=== PATIENT | male | born 1970 ===

== ENCOUNTER 2021-05-22 12:02 | Inpatient (IN) | payer SELFPAY ==
[~2021-05-22] VITALS: Ht 172.7 cm; Wt 85.0 kg
--- NOTE | 2021-05-22 12:21 | PHYS DOC ---
Past Medical History Past Medical History: CAD, Hypertension, [place] Smoking Status: Current Every Day Smoker General Adult EDM: Chief Complaint: CHEST PAIN HPI: HPI: Patient is a 50-year-old male that presented today via [facility] with substernal chest pain. [place] and developed substernal chest pain about 45 minutes ago. Patient states he had some nausea associated with no shortness of air did have some diaphoresis with this pain as well. She states that in March 2021 he did have a heart attack he was seen at [facility] and did have a heart cath with stent placement at that time. Patient states he has been taking his Plavix and aspirin and all of his medications as prescribed. He did not take any medications today. EMS did give the patient aspirin in the field along with nitroglycerin. Patient did state he tested positive for COVID-19 on May 13, 2021. Dr. Luz from cardiology is at the bedside and is aware of the COVID-positive status from May.. Patient's current pain is 4 out of 10 Review of Systems: Review of Systems: Constitutional: Denies fever or chills. [] Eyes: Denies change in visual acuity. [] HENT: Denies nasal congestion or sore throat. [] Respiratory: Denies cough or shortness of breath. [] Cardiovascular: Chest pain GI: Denies abdominal pain, nausea, vomiting, bloody stools or diarrhea. [] : Denies dysuria. [] Musculoskeletal: Denies back pain or joint pain. [] Integument: Diaphoresis Neurologic: Denies headache, focal weakness or sensory changes. [] Endocrine: Denies polyuria or polydipsia. [] Lymphatic: Denies swollen glands. [] Psychiatric: Denies depression or anxiety. [] Heart Score: C/O Chest Pain: Yes HEART Score for Chest Pain: HEART Score for Chest Pain Response (Comments) Value History Highly Suspicious [address] Depression 2 Age >45 - < 65 1 Risk Factors >3 Risk Factors or Hx CAD 2 Troponin >1-<3x Normal Limit 1 Total 8 Risk Factors: Risk Factors: DM, Current or recent (<one month) smoker, HTN, HLP, family history of CAD, obesity. Risk Scores: Score 0 - 3: 2.5% MACE over next 6 weeks - Discharge Home Score 4 - 6: 20.3% MACE over next 6 weeks - Admit for Clinical Observation Score 7 - 10: 72.7% MACE over next 6 weeks - Early Invasive Strategies Current Medications: Current Medications Medications (Trade) Dose Ordered Sig/Lenin Start Time Stop Time Status Last Admin Dose Admin Aspirin (Aspirin Chewable) 324 mg 1X ONCE 05/22/21 12:15 05/22/21 12:16 UNV Allergies: Allergies: Allergies Coded Allergies Type Severity Reaction Last Updated Verified No Known Drug Allergies 05/22/21 No Physical Exam: PE: Constitutional: Well developed, well nourished, no acute distress, non-toxic appearance. [] HENT: Normocephalic, atraumatic, bilateral external ears normal, oropharynx moist, no oral exudates, nose normal. [] Eyes: PERRLA, EOMI, conjunctiva normal, no discharge. [] Neck: Normal range of motion, no tenderness, supple, no stridor. [] Cardiovascular:Heart rate regular rhythm, no murmur [] Lungs & Thorax: Bilateral breath sounds clear to auscultation [] Abdomen: Bowel sounds normal, soft, no tenderness, no masses, no pulsatile masses. [] Skin: Warm, dry, no erythema, no rash. [] Back: No tenderness, no CVA tenderness. [] Extremities: No tenderness, no cyanosis, no clubbing, ROM intact, no edema, peripheral pulses 2+ Neurologic: Alert and oriented X 3, normal motor function, normal sensory function, no focal deficits noted. [] Psychologic: Affect normal, judgement normal, mood normal. [] Current Patient Data: Labs: Laboratory Tests Test 05/22/21 12:13 05/22/21 12:34 White Blood Count 13.1 x10^3/uL Red Blood Count 5.10 x10^6/uL Hemoglobin 13.1 g/dL Hematocrit 40.1 % Mean Corpuscular Volume 79 fL Mean Corpuscular Hemoglobin 26 pg Mean Corpuscular Hemoglobin Concent 33 g/dL Red Cell Distribution Width 14.4 % Platelet Count 269 x10^3/uL Neutrophils (%) (Auto) 83 % Lymphocytes (%) (Auto) 9 % Monocytes (%) (Auto) 7 % Eosinophils (%) (Auto) 0 % Basophils (%) (Auto) 0 % Neutrophils # (Auto) 10.8 x10^3/uL Lymphocytes # (Auto) 1.2 x10^3/uL Monocytes # (Auto) 1.0 x10^3/uL Eosinophils # (Auto) 0.0 x10^3/uL Basophils # (Auto) 0.1 x10^3/uL Prothrombin Time 13.5 SEC Prothromb Time International Ratio 1.0 Activated Partial Thromboplast Time 26 SEC Sodium Level 140 mmol/L Potassium Level 4.1 mmol/L Chloride Level 105 mmol/L Carbon Dioxide Level 24 mmol/L Anion Gap 11 Blood Urea Nitrogen 16 mg/dL Creatinine 1.0 mg/dL Estimated GFR (Cockcroft-Gault) 78.5 BUN/Creatinine Ratio 16 Glucose Level 135 mg/dL Calcium Level 8.7 mg/dL Magnesium Level 2.2 mg/dL Total Bilirubin 0.8 mg/dL Aspartate Amino Transf (AST/SGOT) 20 U/L Alanine Aminotransferase (ALT/SGPT) 33 U/L Alkaline Phosphatase 68 U/L Troponin I High Sensitivity 171 ng/L Total Protein 7.2 g/dL Albumin 3.6 g/dL Albumin/Globulin Ratio 1.0 Influenza Type A Antigen Negative Influenza Type B Antigen Negative SARS-CoV-2 Antigen (Rapid) Negative Current Medications Medications (Trade) Dose Ordered Sig/Lenin Route PRN Reason Start Time Stop Time Status Last Admin Dose Admin Aspirin (Aspirin Chewable) 324 mg 1X ONCE PO 05/22/21 12:45 05/22/21 12:22 DC Heparin Sodium (Porcine) (Heparin Sodium) 4,000 unit 1X ONCE IV 05/22/21 12:45 05/22/21 12:46 DC 05/22/21 12:18 Nitroglycerin (Nitroglycerin) 200 mcg 1X ONCE IART 05/22/21 13:15 05/22/21 13:16 DC 05/22/21 13:11 Verapamil HCl (Verapamil) 2.5 mg 1X ONCE IART 05/22/21 13:15 05/22/21 13:16 DC 05/22/21 13:12 Heparin Sodium (Porcine) (Heparin Sodium) 2,500 unit 1X ONCE IART 05/22/21 13:15 05/22/21 13:16 DC 05/22/21 13:14 Heparin Sodium/ Sodium Chloride (HEPARIN for ARTERIAL LINE FLUSH) 1,000 unit 1X ONCE IART 05/22/21 13:15 05/22/21 13:16 DC 05/22/21 13:14 Heparin Sodium/ Sodium Chloride (HEPARIN for ARTERIAL LINE FLUSH) 1,000 unit 1X ONCE IART 05/22/21 13:15 05/22/21 13:16 DC 05/22/21 13:11 Midazolam HCl (Versed) 2 mg 1X ONCE IV 05/22/21 13:15 05/22/21 13:16 DC 05/22/21 13:12 Fentanyl Citrate (Fentanyl 2ml Vial) 50 mcg 1X ONCE IV 05/22/21 13:15 05/22/21 13:16 DC 05/22/21 13:13 Iodixanol (Visipaque 320) 100 ml 1X ONCE IART 05/22/21 13:15 05/22/21 13:16 DC 05/22/21 13:12 Lidocaine HCl (Xylocaine-Mpf 1% 2ml Vial) 2 ml 1X ONCE INJ 05/22/21 13:15 05/22/21 13:16 DC 05/22/21 13:12 Info (CONTRAST GIVEN -- Rx MONITORING) 1 each PRN DAILY PRN MC SEE COMMENTS 05/22/21 13:15 05/24/21 13:14 Vital Signs: Vital Signs Date Time Temp Pulse Resp B/P (MAP) Pulse Ox O2 Delivery O2 Flow Rate FiO2 05/22/21 13:13 12 05/22/21 13:12 85 05/22/21 12:32 108 117/78 (91) 96 Room Air 05/22/21 12:02 98.1 93 16 111/79 (90) 98 Room Air 98.1 EKG: EKG: EKG done at [address] Man at [address] Luz at 1207 shows sinus rhythm with ST segment depression in V4 V5 and V6. Heart rate of 86 with MA interval of 166 ms with a QTC of 419 this was a STEMI. [] Radiology/Procedures: Radiology/Procedures: REASON: chest pain PROCEDURE: PORTABLE CHEST 1V XR CHEST 1V INDICATION: chest pain COMPARISON STUDY: None. FINDINGS: Lungs: Normal lung volume. No pulmonary mass or consolidation. The tracheobronchial tree and hilar structures are normal. Pleura: No pleural effusion or pneumothorax. Heart and Mediastinum: The cardiomediastinal silhouette is normal. The great vessels of the thorax are normal. Bones and Soft Tissues: The bones and soft tissues are within normal limits. IMPRESSION: No acute cardiopulmonary process. Electronically signed by: Terry Figueroa MD (05/22/2021 12:45 PM) [id number][] Course & Med Decision Making: Course & Med Decision Making Pertinent Labs and Imaging studies reviewed. (See chart for details) 1210 Dr. Luz is at the bedside seeing another patient and happened to note that we had a STEMI in the department. He reviewed the EKG has decided to take this patient to the lending manager he feels it is necessary to evaluate the status of the stent. Patient is agreeable to going to the [facility] and being admitted for further cardiology management. Did speak to Dr. Robles regarding admitting this patient he is agreeable to admission. Patient is stable at this time heart rate of 90 blood pressure is 113/73 95% on room air patient is having 2 out of 10 chest pain. Patient was given heparin [address] Luz no Plavix at this time. Patient did have an aspirin in the field. Dragon Disclaimer: Dragon Disclaimer: This electronic medical record was generated, in whole or in part, using a voice recognition dictation system. Departure Departure Impression: Primary Impression: Chest pain due to CAD Disposition: ADMITTED INPATIENT Admitting Physician: MARIA L Condition: GUARDED PRISCILLA MCKEON APRN May 22, 2021 12:20
[2021-05-22] MEDS ORDERED: VERAPAMIL 5 MG/2 ML VIAL. ONE (12:24)
[2021-05-22] MEDS ORDERED: HEPARIN for IV BOLUS 10,000 UNIT/10 ML VIAL. ONE (12:24)
[2021-05-22] MEDS ORDERED: MIDAZOLAM HCL/PF 2 MG/2 ML VIAL. ONE (12:24)
[2021-05-22] MEDS ORDERED: fentaNYL PF VIAL 100 MCG/2 ML VIAL ONE (12:24)
[2021-05-22] MEDS ORDERED: LIDOCAINE 1% PF 2 ML VIAL. ONE (12:25)
[2021-05-22] MEDS ORDERED: IODIXANOL 320 MG/ML 100 ML VIAL. ONE (12:25)
[2021-05-22] MEDS ORDERED: NITROGLYCERIN 200 MCG/2 ML SYRINGE FOR CATH/VASC LAB. ONE (12:25)
[2021-05-22 12:37] LABS: BASO # 0.1 x10^3/uL (0.0-0.2); BASO % 0 % (0-3); EOS % 0 % (0-3); HEMATOCRIT 40.1 % (39.0-53.0); HEMOGLOBIN 13.1 g/dL (13.0-17.5); LYMPH # 1.2 x10^3/uL (1.0-4.8); LYMPH % 9 % (24-48); MEAN CORPUSCULAR HEMOGLOBIN 26 pg (25-35); MEAN CORPUSCULAR HGB CONC 33 g/dL (31-37); MEAN CORPUSCULAR VOLUME 79 fL (79-100); MONO % 7 % (0-9); NEUT # 10.8 x10^3/uL (1.8-7.7); NEUT % 83 % (31-73); PLATELET COUNT 269 x10^3/uL (140-400); RED CELL DISTRIBUTION WIDTH 14.4 % (11.5-14.5); WHITE BLOOD COUNT 13.1 x10^3/uL (4.0-11.0)
[2021-05-22 12:43] LABS: CALCIUM 8.7 mg/dL (8.5-10.1); GFR 78.5; POTASSIUM 4.1 mmol/L (3.5-5.1)
[2021-05-22] MEDS ORDERED: ASPIRIN CHEWABLE 81 MG TABLET. PO ONE (12:45)
[2021-05-22] MEDS ORDERED: HEPARIN for IV BOLUS 10,000 UNIT/10 ML VIAL. IV ONE (12:45)
[2021-05-22 12:46] LABS: PROTHROMBIN TIME PATIENT 13.5 SEC (11.7-14.0)
--- NOTE | 2021-05-22 12:48 | RAD ---
XR CHEST 1V INDICATION: chest pain COMPARISON STUDY: None. FINDINGS: Lungs: Normal lung volume. No pulmonary mass or consolidation. The tracheobronchial tree and hilar st ructures are normal. Pleura: No pleural effusion or pneumothorax. Heart and Mediastinum: The cardiomediastinal silhouette is normal. The great vessels of the thorax ar e normal. Bones and Soft Tissues: The bones and soft tissues are within normal limits. IMPRESSION: No acute cardiopulmonary process. Electronically signed by: Terry Figueroa MD (05/22/2021 12:45 PM) [id number]
[2021-05-22 12:50] LABS: ALBUMIN 3.6 g/dL (3.4-5.0); MAGNESIUM 2.2 mg/dL (1.8-2.4); TOTAL BILIRUBIN 0.8 mg/dL (0.2-1.0); TOTAL PROTEIN 7.2 g/dL (6.4-8.2)
[2021-05-22 13:00] LABS: INFLUENZA A PATIENT NEGATIVE (NEGATIVE); INFLUENZA B PATIENT NEGATIVE (NEGATIVE)
[2021-05-22] MEDS ORDERED: CONTRAST GIVEN. MC PRN (13:15)
[2021-05-22] MEDS ORDERED: fentaNYL PF VIAL 100 MCG/2 ML VIAL IV ONE (13:15)
[2021-05-22] MEDS ORDERED: NITROGLYCERIN 200 MCG/2 ML SYRINGE FOR CATH/VASC LAB. IART ONE (13:15)
[2021-05-22] MEDS ORDERED: VERAPAMIL 5 MG/2 ML VIAL. IART ONE (13:15)
[2021-05-22] MEDS ORDERED: LIDOCAINE 1% PF 2 ML VIAL. INJ ONE (13:15)
[2021-05-22] MEDS ORDERED: MIDAZOLAM HCL/PF 2 MG/2 ML VIAL. IV ONE (13:15)
[2021-05-22] MEDS ORDERED: HEPARIN for IV BOLUS 10,000 UNIT/10 ML VIAL. IART ONE (13:15)
[2021-05-22] MEDS ORDERED: IODIXANOL 320 MG/ML 100 ML VIAL. IART ONE (13:15)
[2021-05-22 13:25] VITALS: BP 107/66
--- NOTE | 2021-05-22 13:42 | PDOC2 ---
CARDIOLOGY CONSULT NOTE DATE OF SERVICE: DATE: 05/22/21 TIME: 13:36 CHIEF COMPLAINT: Chest pain HPI: 50-year-old male who presented to the hospital in the setting of acute onset of chest pain. He was in his usual state of health and was at the [facility] when he began to have sudden onset of chest discomfort is brought to the ER for evaluation. In the ER he had 1 to [address] elevations. Of note, the patient apparently had a acute anterior STEMI 2 months ago and underwent PCI with 2 overlapping stents in the LAD. Given his chest pain and EKG changes a decision was made to take the patient to the catheterization laboratory to ensure that he did not have any significant obstructive disease. Furthermore, the patient reports that he had coronavirus approximately a week and a half ago. Patient reports compliance with medications but ran out of his prescriptions apparently today. PMHX: 1. Coronary artery disease 2. Hypertension 3. Dyslipidemia SOCHX: No alcohol, tobacco or illicit drug use. He is and 1 child FAMHX: Noncontributory CURRENT MEDS: Current Medications Medications (Trade) Dose Ordered Sig/Lenin Route PRN Reason Start Time Stop Time Status Last Admin Dose Admin Heparin Sodium (Porcine) (Heparin Sodium) 4,000 unit 1X ONCE IV 05/22/21 12:45 05/22/21 12:46 DC 05/22/21 12:18 Nitroglycerin (Nitroglycerin) 200 mcg 1X ONCE IART 05/22/21 13:15 05/22/21 13:16 DC 05/22/21 13:11 Verapamil HCl (Verapamil) 2.5 mg 1X ONCE IART 05/22/21 13:15 05/22/21 13:16 DC 05/22/21 13:12 Heparin Sodium (Porcine) (Heparin Sodium) 2,500 unit 1X ONCE IART 05/22/21 13:15 05/22/21 13:16 DC 05/22/21 13:14 Heparin Sodium/ Sodium Chloride (HEPARIN for ARTERIAL LINE FLUSH) 1,000 unit 1X ONCE IART 05/22/21 13:15 05/22/21 13:16 DC 05/22/21 13:14 Heparin Sodium/ Sodium Chloride (HEPARIN for ARTERIAL LINE FLUSH) 1,000 unit 1X ONCE IART 05/22/21 13:15 05/22/21 13:16 DC 05/22/21 13:11 Midazolam HCl (Versed) 2 mg 1X ONCE IV 05/22/21 13:15 05/22/21 13:16 DC 05/22/21 13:12 Fentanyl Citrate (Fentanyl 2ml Vial) 50 mcg 1X ONCE IV 05/22/21 13:15 05/22/21 13:16 DC 05/22/21 13:13 Iodixanol (Visipaque 320) 100 ml 1X ONCE IART 05/22/21 13:15 05/22/21 13:16 DC 05/22/21 13:12 Lidocaine HCl (Xylocaine-Mpf 1% 2ml Vial) 2 ml 1X ONCE INJ 05/22/21 13:15 05/22/21 13:16 DC 05/22/21 13:12 ALLERGIES: Allergies Coded Allergies Type Severity Reaction Last Updated Verified No Known Drug Allergies 05/22/21 No ROS: Negative for 10 out of 14 systems reviewed unless otherwise mentioned above in HPI PHYSICAL EXAM: Vital Signs/I&O: Vital Signs Date Time Temp Pulse Resp B/P (MAP) Pulse Ox O2 Delivery O2 Flow Rate FiO2 05/22/21 13:25 100 18 98 Nasal Cannula 2.0 05/22/21 12:32 117/78 (91) 05/22/21 12:02 98.1 98.1 Physical Exam: The patient appeared well nourished and normally developed. Head exam is unremarkable. No scleral icterus or corneal arcus noted. Neck is without jugular venous distension, thyromegaly, or carotid bruits. Carotid upstrokes are brisk bilaterally. Lungs are clear to auscultation and percussion. Cardiac exam reveals the PMI to be normally sized and situated. Rhythm is regular. First and second heart sounds normal. No murmurs, rubs or gallops. Abdominal exam reveals normal bowel sounds, no masses, no organomegaly and no aortic enlargement. Extremities are nonedematous and both femoral and pedal pulses are normal. Msk: No traumua Neuro: No focal deficits DIAGNOSTIC TESTING: EKG demonstrates 1 to [address]-T wave changes Chest x-ray is unremarkable Cardiac catheterization demonstrates two-vessel coronary artery disease with patent overlapping LAD stents (Xience 4.0 x 15 and 3.5 x 38). Patient has preserved LV systolic function with an ejection fraction of 55%. Normal left ventricular filling pressures Lab Laboratory Tests Test 05/22/21 12:13 05/22/21 12:34 White Blood Count 13.1 x10^3/uL (4.0-11.0) H Red Blood Count 5.10 x10^6/uL (4.30-5.70) Hemoglobin 13.1 g/dL (13.0-17.5) Hematocrit 40.1 % (39.0-53.0) Mean Corpuscular Volume 79 fL (79-100) Mean Corpuscular Hemoglobin 26 pg (25-35) Mean Corpuscular Hemoglobin Concent 33 g/dL (31-37) Red Cell Distribution Width 14.4 % (11.5-14.5) Platelet Count 269 x10^3/uL (140-400) Neutrophils (%) (Auto) 83 % (31-73) H Lymphocytes (%) (Auto) 9 % (24-48) L Monocytes (%) (Auto) 7 % (0-9) Eosinophils (%) (Auto) 0 % (0-3) Basophils (%) (Auto) 0 % (0-3) Neutrophils # (Auto) 10.8 x10^3/uL (1.8-7.7) H Lymphocytes # (Auto) 1.2 x10^3/uL (1.0-4.8) Monocytes # (Auto) 1.0 x10^3/uL (0.0-1.1) Eosinophils # (Auto) 0.0 x10^3/uL (0.0-0.7) Basophils # (Auto) 0.1 x10^3/uL (0.0-0.2) Prothrombin Time 13.5 SEC (11.7-14.0) Prothromb Time International Ratio 1.0 (0.8-1.1) Activated Partial Thromboplast Time 26 SEC (24-38) Sodium Level 140 mmol/L (136-145) Potassium Level 4.1 mmol/L (3.5-5.1) Chloride Level 105 mmol/L (98-107) Carbon Dioxide Level 24 mmol/L (21-32) Anion Gap 11 (6-14) Blood Urea Nitrogen 16 mg/dL (8-26) Creatinine 1.0 mg/dL (0.7-1.3) Estimated GFR (Cockcroft-Gault) 78.5 BUN/Creatinine Ratio 16 (6-20) Glucose Level 135 mg/dL (70-99) H Calcium Level 8.7 mg/dL (8.5-10.1) Total Bilirubin 0.8 mg/dL (0.2-1.0) Aspartate Amino Transf (AST/SGOT) 20 U/L (15-37) Alkaline Phosphatase 68 U/L (46-116) Troponin I High Sensitivity 171 ng/L (4-75) H Total Protein 7.2 g/dL (6.4-8.2) Albumin 3.6 g/dL (3.4-5.0) Albumin/Globulin Ratio 1.0 (1.0-1.7) Influenza Type A Antigen Negative (NEGATIVE) Influenza Type B Antigen Negative (NEGATIVE) SARS-CoV-2 Antigen (Rapid) Negative (NEGATIVE) Laboratory Tests 05/22/21 12:13 ASSESSMENT: 1. Chest pain: Etiology is unclear but no obvious evidence of stent thrombosis. 2. NSTEMI, likely type II 3. Hypertension 4. Dyslipidemia 5. Recent diagnosis of coronavirus pneumonia PLAN: 1. Patient has preserved LV systolic function. 2. We will restart his aspirin and Plavix therapies. 3. When his home medication list is available can restart his statin therapy. 4. Given the patient's recent coronavirus diagnosis and sudden onset of chest pain he would be appropriate to rule out any pulmonary occlusive disease. Check D-dimer and consider CT angiogram of the chest based on symptoms and laboratory studies. Case discussed with primary service. Family and patient updated. Thank you for this consultation. We will follow along. DINESH SALINAS MD May 22, 2021 13:41
--- NOTE | 2021-05-22 13:51 | CARD ---
MR#: [id number] Date of Study: 05/22/2021 Ordering Physician: DINESH LUZ, Referring Physician: DINESH LUZ, Tech: RT Gerson(R)() APPROVED REPORT Technologist: RT Gerson(R)() Nurse: Pearl Castillo RN Procedure(s) performed: FL TIME: 3.7 MINUTES DOSE: 58.65 Gycm2 CONTRAST: 87 VISIPAQUE MODERATE SEDATION: 34 MINUTES Left heart catheterization, left ventriculography and coronary angiography INDICATION The indication(s) include : STEMI . CSHA Clinical Frailty Scale CS Clinical Frailty Scale: Managing Well Heart Failure Heart Failure: No PROCEDURE NARRATIVE Clinical information: 50-year-old man with a recent history of LAD STEMI status post overlapping stents in the proximal to mid LAD presented to the hospital from the [facility] with sudden onset of chest pain. EKG demonstrated anterolateral ST segment elevation and therefore the patient was taken urgently to the catheterizatio n laboratory. An old EKG was not available for review and comparison. Despite nitroglycerin and asp irin the patient continued to have chest pain at 4 out of 10 in the ER. Informed consent: Written informed consent was obtained from the patient after adequate discussion of the risks and valentín efits of the procedure. Procedure details: ACCESS: The right wrist was prepped and draped in usual sterile fashion. Under 1% lidocaine local anesthesia a 6 Iranian Terumo sheath was placed in the right radial artery via the Seldinger technique. DIAGNOSTIC ANGIOGRAPHY: Right and left coronary arteries were engaged with a 6 Iranian TIG catheter. Diagnostic angiography i n multiple views were obtained. Next, a 6 Iranian pigtail catheter was placed in the left ventricle a nd a LVEDP was measured. A pullback was performed after left ventriculography. All catheters were e xchanged over J-tip guidewire. FINDINGS: ======= Aorta: 110/80 LVEDP: 15 mmHg Left ventriculogram: Ejection fraction 55% Normal wall motion without any evidence of aortic or mitral insufficiency. Coronary angiography: LM: Large caliber vessel with normal angiographic appearance LAD: Large caliber vessel with a proximal 30% stenosis. There is widely patent overlapping stents in the proximal and mid segment. D1: Small to moderate caliber vessel with moderate diffuse disease of up to 50%. LCX: Large caliber codominant vessel with mild luminal irregularities OM1: Large-caliber vessel with mild luminal irregularities. RCA: Large caliber dominant vessel with a proximal to mid 50% stenosis. RPDA: Moderate caliber vessel with mild luminal irregularities. CLOSURE: At case completion the right radial sheath was removed and a Terumo radial band was applied with 11 m L of air. Hemostasis was achieved. COMPLICATIONS: No acute complications noted Conclusion 1. Normal left-sided filling pressures, LVEDP 15 mmHg. 2. Normal LV systolic function, EF 55%. 3. Two-vessel coronary artery disease with patent stents in the proximal and mid LAD. Recommendations 1. Continue aspirin and Plavix therapy. 2. Consider evaluation for noncardiac causes of chest pain in the setting of known recent coronaviru s infection. Signed by : Dinesh Luz, Electronically Approved : 05/22/2021 13:51:18
[2021-05-22] MEDS ORDERED: ACETAMINOPHEN 325 MG TABLET. PO PRN (14:15)
[2021-05-22] MEDS ORDERED: ONDANSETRON PF 4 MG/2 ML VIAL. IVP PRN (14:15)
[2021-05-22] MEDS ORDERED: NITROGLYCERIN SUBLINGUAL 0.4 MG BOTTLE OF 25. SL PRN (14:15)
--- NOTE | 2021-05-22 14:20 | PDOC1 ---
History and Physical Date of Admission Date of Admission DATE: 05/22/21 TIME: 14:08 Identification/Chief Complaint Chief Complaint Chest pain Source Source: Patient History of Present Illness History of Present Illness Mr. Toby Khan is a 50-year-old male with past medical history of hyperlipidemia hypertension and coronary artery disease of previous LAD stenting March 16, 2021 who comes to the ED with acute onset chest pain while he was at the [facility]. The pain did not go away after 10 minutes, substernal squeezing in nature with associated nausea diaphoresis and he decided to come to the ED for further care. He does note that 13 days ago he was diagnosed with COVID-19 pneumonia minimal upper respiratory symptoms they resolved within days he has been asymptomatic for the past 10 days. He does not smoke or drink alcohol or use illicit drugs and has modified his lifestyle and diet since his MS and even lost some weight since March 2021 and has been compliant with his aspirin and Plavix and has not missed a dose. He did not take this morning's dose as he is awaiting them to be refilled at [facility] pharmacy. WBC 13.1, Hb 13.1, platelets 269, INR 1, D-dimer less than 0.27, NA 140, K4.1, BUN 16, CR 1, glucose 135, LFTs within normal limits, high-sensitivity troponin is 171, rapid influenza negative, rapid COVID-19 negative Chest radiograph with no acute abnormality EKG concerning for STEMI To cardiac Mapping Technician urgently for code STEMI with normal hemodynamics and two- vessel coronary artery disease with patent stents in the proximal and mid LAD recommended to continue aspirin Plavix Past Medical History Cardiovascular: CAD (03/16/2021 - LAD stent x2), HTN, Hyperlipidemia Past Surgical History Past Surgical History: No pertinent history Family History Family History: No Significant (Reviewed) Social History Smoke: No ALCOHOL: none Drugs: None Current Problem List Problem List Problems Medical Problems: (1) Chest pain due to CAD Status: Acute Current Medications Current Medications Current Medications Aspirin (Aspirin Chewable) 324 mg 1X ONCE PO ; Start 05/22/21 at 12:45; Stop 05/22/21 at 12:22; Status DC Heparin Sodium (Porcine) (Heparin Sodium) 4,000 unit 1X ONCE IV Last administered on 05/22/21at 12:18; Start 05/22/21 at 12:45; Stop 05/22/21 at 12:46; Status DC Nitroglycerin (Nitroglycerin) 200 mcg 1X ONCE IART Last administered on 05/22/21at 13:11; Start 05/22/21 at 13:15; Stop 05/22/21 at 13:16; Status DC Verapamil HCl (Verapamil) 2.5 mg 1X ONCE IART Last administered on 05/22/21at 13:12; Start 05/22/21 at 13:15; Stop 05/22/21 at 13:16; Status DC Heparin Sodium (Porcine) (Heparin Sodium) 2,500 unit 1X ONCE IART Last administered on 05/22/21at 13:14; Start 05/22/21 at 13:15; Stop 05/22/21 at 13:16; Status DC Heparin Sodium/ Sodium Chloride (HEPARIN for ARTERIAL LINE FLUSH) 1,000 unit 1X ONCE IART Last administered on 05/22/21at 13:14; Start 05/22/21 at 13:15; Stop 05/22/21 at 13:16; Status DC Heparin Sodium/ Sodium Chloride (HEPARIN for ARTERIAL LINE FLUSH) 1,000 unit 1X ONCE IART Last administered on 05/22/21at 13:11; Start 05/22/21 at 13:15; Stop 05/22/21 at 13:16; Status DC Midazolam HCl (Versed) 2 mg 1X ONCE IV Last administered on 05/22/21at 13:12; Start 05/22/21 at 13:15; Stop 05/22/21 at 13:16; Status DC Fentanyl Citrate (Fentanyl 2ml Vial) 50 mcg 1X ONCE IV Last administered on 05/22/21at 13:13; Start 05/22/21 at 13:15; Stop 05/22/21 at 13:16; Status DC Iodixanol (Visipaque 320) 100 ml 1X ONCE IART Last administered on 05/22/21at 13:12; Start 05/22/21 at 13:15; Stop 05/22/21 at 13:16; Status DC Lidocaine HCl (Xylocaine-Mpf 1% 2ml Vial) 2 ml 1X ONCE INJ Last administered on 05/22/21at 13:12; Start 05/22/21 at 13:15; Stop 05/22/21 at 13:16; Status DC Info (CONTRAST GIVEN -- Rx MONITORING) 1 each PRN DAILY PRN MC SEE COMMENTS; Start 05/22/21 at 13:15; Stop 05/24/21 at 13:14 Clopidogrel Bisulfate (Plavix) 75 mg DAILYWBKFT PO ; Start 05/22/21 at 14:30 Aspirin (Ecotrin) 81 mg DAILYWBKFT PO ; Start 05/23/21 at 08:00 Allergies Allergies: Coded Allergies: No Known Drug Allergies (Unverified , 05/22/21) ROS General: YES: Fatigue, Malaise; No: Chills, Night Sweats, Appetite, Other PSYCHOLOGICAL ROS: No: Anxiety, Behavioral Disorder, Concentration difficultie, Decreased libido, Depression, Disorientation, Hallucinations, Hostility, Irritablity, Memory difficulties, Mood Swings, Obsessive thoughts, Physical abuse, Sexual abuse, Sleep disturbances, Suicidal ideation, Other Eyes: No Blurry vision, No Decreased vision, No Double vision, No Dry eyes, No Excessive tearing, No Eye Pain, No Itchy Eyes, No Loss of vision, No Photophobia, No Scotomata, No Uses contacts, No Uses glasses, No Other HEENT: No: Heacaches, Visual Changes, Hearing change, Nasal congestion, Nasal discharge, Oral lesions, Sinus pain, Sore Throat, Epistaxis, Sneezing, Snoring, Tinnitus, Vertigo, Vocal changes, Other ALLERGY AND IMMUNOLOGY: No: Hives, Insect Bite Sensitivity, Itchy/Watery Eyes, Nasal Congestion, Post Nasal Drip, Seasonal Allergies, Other Hematological and Lymphatic: No: Bleeding Problems, Blood Clots, Blood Transfusions, Brusing, Night Sweats, Pallor, Swollen Lymph Nodes, Other ENDOCRINE: No: Breast Changes, Galactorrhea, Hair Pattern Changes, Hot Flashes, Malaise/lethargy, Mood Swings, Palpitations, Polydipsia/polyuria, Skin Changes, Temperature Intolerance, Unexpected Weight Changes, Other Breast: No New/Changing Breast Lumps, No Nipple changes, No Nipple discharge, No Other Respiratory: No: Cough, Hemoptysis, Orthopnea, Pleuritic Pain, Shortness of breath, SOB with excertion, Sputum Changes, Stridor, Tachypnea, Wheezing, Other Cardiovascular: yes Chest Pain; No Palpitations, No Orthopnea, No Paroxysmal Noc. Dyspnea, No Edema, No Lt Headedness, No Other Gastrointestinal: No Nausea, No Vomiting, No Abdominal Pain, No Diarrhea, No Constipation, No Melena, No Hematochezia, No Other Genitourinary: No Dysuria, No Frequency, No Incontinence, No Hematuria, No Retention, No Discharge, No Urgency, No Pain, No Flank Pain, No Other, No , No , No , No , No , No , No Musculoskeletal: No Gait Disturbance, No Joint Pain, No Joint Stiffness, No Joint Swelling, No Muscle Pain, No Muscular Weakness, No Pain In:, No Swelling In:, No Other Neurological: No Behavorial Changes, No Bowel/Bladder ControlChng, No Confusion, No Dizziness, No Gait Disturbance, No Headaches, No Impaired Coord/balance, No Memory Loss, No Numbness/Tingling, No Seizures, No Speech Problems, No Tremors, No Visual Changes, No Weakness, No Other Skin: No Dry Skin, No Eczema, No Hair Changes, No Lumps, No Mole Changes, No Mottling, No Nail Changes, No Pruritus, No Rash, No Skin Lesion Changes, No Other, No Acne Physical Exam General: Alert, Oriented X3, Cooperative, mild distress HEENT: Atraumatic, PERRLA, EOMI, Mucous membr. moist/pink Lungs: Clear to auscultation, Normal air movement Heart: S1S2, RRR, no thrills, no rubs, no gallops, no murmurs Extremities: No clubbing, No cyanosis, No edema, Normal pulses, No tendernes s/swelling, Other (right wrist with compression) Skin: No rashes, No breakdown, No significant lesion Neuro: Normal gait, Normal speech, Strength at 5/5 X4 ext, Normal tone, Sensation intact, Cranial nerves 3-12 NL, Reflexes 2+ Psych/Mental Status: Mental status NL, Mood NL Vitals Vitals Vital Signs Date Time Temp Pulse Resp B/P (MAP) Pulse Ox O2 Delivery O2 Flow Rate FiO2 05/22/21 13:25 100 18 98 Nasal Cannula 2.0 05/22/21 12:32 117/78 (91) 05/22/21 12:02 98.1 98.1 Labs Labs Laboratory Tests Test 05/22/21 12:12 05/22/21 12:13 05/22/21 12:34 D-Dimer (Kathy) < 0.27 ug/mlFEU White Blood Count 13.1 x10^3/uL (4.0-11.0) Red Blood Count 5.10 x10^6/uL (4.30-5.70) Hemoglobin 13.1 g/dL (13.0-17.5) Hematocrit 40.1 % (39.0-53.0) Mean Corpuscular Volume 79 fL (79-100) Mean Corpuscular Hemoglobin 26 pg (25-35) Mean Corpuscular Hemoglobin Concent 33 g/dL (31-37) Red Cell Distribution Width 14.4 % (11.5-14.5) Platelet Count 269 x10^3/uL (140-400) Neutrophils (%) (Auto) 83 % (31-73) Lymphocytes (%) (Auto) 9 % (24-48) Monocytes (%) (Auto) 7 % (0-9) Eosinophils (%) (Auto) 0 % (0-3) Basophils (%) (Auto) 0 % (0-3) Neutrophils # (Auto) 10.8 x10^3/uL (1.8-7.7) Lymphocytes # (Auto) 1.2 x10^3/uL (1.0-4.8) Monocytes # (Auto) 1.0 x10^3/uL (0.0-1.1) Eosinophils # (Auto) 0.0 x10^3/uL (0.0-0.7) Basophils # (Auto) 0.1 x10^3/uL (0.0-0.2) Prothrombin Time 13.5 SEC (11.7-14.0) Prothromb Time International Ratio 1.0 (0.8-1.1) Activated Partial Thromboplast Time 26 SEC (24-38) Sodium Level 140 mmol/L (136-145) Potassium Level 4.1 mmol/L (3.5-5.1) Chloride Level 105 mmol/L (98-107) Carbon Dioxide Level 24 mmol/L (21-32) Anion Gap 11 (6-14) Blood Urea Nitrogen 16 mg/dL (8-26) Creatinine 1.0 mg/dL (0.7-1.3) Estimated GFR (Cockcroft-Gault) 78.5 BUN/Creatinine Ratio 16 (6-20) Glucose Level 135 mg/dL (70-99) Calcium Level 8.7 mg/dL (8.5-10.1) Magnesium Level 2.2 mg/dL (1.8-2.4) Total Bilirubin 0.8 mg/dL (0.2-1.0) Aspartate Amino Transf (AST/SGOT) 20 U/L (15-37) Alanine Aminotransferase (ALT/SGPT) 33 U/L (16-63) Alkaline Phosphatase 68 U/L (46-116) Troponin I High Sensitivity 171 ng/L (4-75) Total Protein 7.2 g/dL (6.4-8.2) Albumin 3.6 g/dL (3.4-5.0) Albumin/Globulin Ratio 1.0 (1.0-1.7) Influenza Type A Antigen Negative (NEGATIVE) Influenza Type B Antigen Negative (NEGATIVE) SARS-CoV-2 Antigen (Rapid) Negative (NEGATIVE) Laboratory Tests Test 05/22/21 12:12 05/22/21 12:13 05/22/21 12:34 D-Dimer (Kathy) < 0.27 ug/mlFEU White Blood Count 13.1 x10^3/uL (4.0-11.0) Red Blood Count 5.10 x10^6/uL (4.30-5.70) Hemoglobin 13.1 g/dL (13.0-17.5) Hematocrit 40.1 % (39.0-53.0) Mean Corpuscular Volume 79 fL (79-100) Mean Corpuscular Hemoglobin 26 pg (25-35) Mean Corpuscular Hemoglobin Concent 33 g/dL (31-37) Red Cell Distribution Width 14.4 % (11.5-14.5) Platelet Count 269 x10^3/uL (140-400) Neutrophils (%) (Auto) 83 % (31-73) Lymphocytes (%) (Auto) 9 % (24-48) Monocytes (%) (Auto) 7 % (0-9) Eosinophils (%) (Auto) 0 % (0-3) Basophils (%) (Auto) 0 % (0-3) Neutrophils # (Auto) 10.8 x10^3/uL (1.8-7.7) Lymphocytes # (Auto) 1.2 x10^3/uL (1.0-4.8) Monocytes # (Auto) 1.0 x10^3/uL (0.0-1.1) Eosinophils # (Auto) 0.0 x10^3/uL (0.0-0.7) Basophils # (Auto) 0.1 x10^3/uL (0.0-0.2) Prothrombin Time 13.5 SEC (11.7-14.0) Prothromb Time International Ratio 1.0 (0.8-1.1) Activated Partial Thromboplast Time 26 SEC (24-38) Sodium Level 140 mmol/L (136-145) Potassium Level 4.1 mmol/L (3.5-5.1) Chloride Level 105 mmol/L (98-107) Carbon Dioxide Level 24 mmol/L (21-32) Anion Gap 11 (6-14) Blood Urea Nitrogen 16 mg/dL (8-26) Creatinine 1.0 mg/dL (0.7-1.3) Estimated GFR (Cockcroft-Gault) 78.5 BUN/Creatinine Ratio 16 (6-20) Glucose Level 135 mg/dL (70-99) Calcium Level 8.7 mg/dL (8.5-10.1) Magnesium Level 2.2 mg/dL (1.8-2.4) Total Bilirubin 0.8 mg/dL (0.2-1.0) Aspartate Amino Transf (AST/SGOT) 20 U/L (15-37) Alanine Aminotransferase (ALT/SGPT) 33 U/L (16-63) Alkaline Phosphatase 68 U/L (46-116) Troponin I High Sensitivity 171 ng/L (4-75) Total Protein 7.2 g/dL (6.4-8.2) Albumin 3.6 g/dL (3.4-5.0) Albumin/Globulin Ratio 1.0 (1.0-1.7) Influenza Type A Antigen Negative (NEGATIVE) Influenza Type B Antigen Negative (NEGATIVE) SARS-CoV-2 Antigen (Rapid) Negative (NEGATIVE) Images Images Chest radiograph: Lungs: Normal lung volume. No pulmonary mass or consolidation. The tracheobronchial tree and hilar structures are normal. Pleura: No pleural effusion or pneumothorax. Heart and Mediastinum: The cardiomediastinal silhouette is normal. The great vessels of the thorax are normal. Bones and Soft Tissues: The bones and soft tissues are within normal limits. IMPRESSION: No acute cardiopulmonary process. VTE Prophylaxis Ordered VTE Prophylaxis Devices: No VTE Pharmacological Prophylaxi: Yes Assessment/Plan Assessment/Plan A/P: Chest pain - less likely to be cardiac given clean cardiac catheterization with patent stents. Likely esophageal spasm versus pleuritic pain, mild myocarditis from recovering from COVID-19. Would continue aspirin and Plavix therapy. PPI and outpatient GI f/u recommend Elevated troponin -likely type II demand ischemia with potential mild myocarditis from COVID-19. Recommended therapies and monitoring and aspirin therapy Hyperlipidemia - cont home statin Hypertension - cont home meds Coronary artery disease of previous LAD stenting March 16, 2021 - patent stents, cont ASA, plavix Leukocytosis -likely stress related Recovered COVID 19 - not hypoxic FEN - NPO PPX - heparin FULL CODE Dispo - Inpatient CVC Justifications for Admission Other Justification EVELINE MARTIN MD May 22, 2021 14:19
[2021-05-22] MEDS ORDERED: CLOPIDOGREL BISULFATE 75 MG TABLET PO SCH (14:30)
[2021-05-22 14:54] VITALS: BP 100/65
[2021-05-22] MEDS ORDERED: PANTOPRAZOLE 40 MG TABLET.DR. PO SCH (15:00)
[2021-05-22] MEDS ORDERED: CLOP75TA PO (16:19)
[2021-05-22] MEDS ORDERED: LOSA-73 PO (16:19)
[2021-05-22] MEDS ORDERED: ASPI-630 PO (16:19)
[2021-05-22] MEDS ORDERED: CRESTOR40 MG PO (16:19)
[2021-05-22] MEDS ORDERED: DILT120C99 PO (16:19)
[2021-05-22] MEDS ORDERED: BREO ELLIPTA 11 EACH IH (16:19)
[2021-05-22] MEDS ORDERED: PANT40TA77 PO (18:26)
--- NOTE | 2021-05-23 01:46 | EKG ---
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
[2021-05-23] MEDS ORDERED: ASPIRIN ENTERIC COATED 81 MG TABLET.DR. PO SCH (08:00)
== END 2021-05-22 19:32 | disposition home or self-care (01) | DRG 282 ==
LOC: ER 12:02 → 6 SOUTH 12:15
PROVIDERS: ADMIT Internal Medicine; ATTEND Internal Medicine
PROC: 4A023N7 Measurement of Cardiac Sampling and Pressure, Left Heart, Percutaneous Approach (ICD-10-PCS; principal; 2021-05-22)
PROC: B215YZZ Fluoroscopy of Left Heart using Other Contrast (ICD-10-PCS; 2021-05-22)
PROC: B211YZZ Fluoroscopy of Multiple Coronary Arteries using Other Contrast (ICD-10-PCS; 2021-05-22)
DX: I25.10 Atherosclerotic heart disease of native coronary artery without angina pectoris (principal); I21.A1 Myocardial infarction type 2; E78.5 Hyperlipidemia, unspecified; I11.9 Hypertensive heart disease without heart failure; I25.2 Old myocardial infarction; Z20.822 Contact with and (suspected) exposure to COVID-19; Z79.02 Long term (current) use of antithrombotics/antiplatelets; Z79.82 Long term (current) use of aspirin; Z86.16 Personal history of COVID-19; Z87.01 Personal history of pneumonia (recurrent); Z87.891 Personal history of nicotine dependence; Z95.5 Presence of coronary angioplasty implant and graft; R07.89 Other chest pain
CPT/HCPCS: 36415; 71045; 80053; 83735; 84484; 85025; 85379; 85610; 85730; 87428; 93005; 93458; 96374; 99152; 99153; C1894; J1644; J2250; J3010; J3490; Q9967; U0003; U0005; 99285-25; G0378